=== PATIENT | female | born 1985 | race Caucasian/White ===

== ENCOUNTER → 2024-03-06 | Outpatient (CLI) | payer BC, OTHER ==
[~2024-03-06] MED LIST: Furosemide 40 MG/4 ML VIAL IV SCH; NO HOME MEDICATIONS; NORCO 325 MG-51 TAB PO; ZOFRAN ODT4 MG PO
== END ==
LOC: COL.RAD 11:23
DX: Q62.11 Congenital occlusion of ureteropelvic junction (principal); Q62.39 Other obstructive defects of renal pelvis and ureter
CPT/HCPCS: A9562; J1940

== ENCOUNTER → 2024-07-16 | Outpatient (CLI) | payer BC, OTHER ==
[~2024-07-16] MED LIST changes: -Furosemide 40 MG/4 ML VIAL IV SCH
== END ==
LOC: COL.RAD 08:59
DX: N20.0 Calculus of kidney (principal); N32.9 Bladder disorder, unspecified